=== PATIENT | female | born 1970 | race Caucasian/White ===

== ENCOUNTER 2020-01-11 16:28 | Emergency (ER) | payer OTHER, SELFPAY ==
--- NOTE | 2020-01-11 16:00 | ECG_ITS ---
Measurements Intervals [place] Rate: 86 P: 40 MO: 166 QRS: 54 QRSD: 94 T: 27 QT: 360 QTc: 432 Interpretive Statements SINUS RHYTHM NORMAL ECG Electronically Signed On 01-12-2020 7:07:54 CDT by Franck Allen D.O.
--- NOTE | 2020-01-11 16:31 | ED.ARRPALP ---
HPI - Arrhythmia/Palpitations General Chief Complaint: Arrhythmia/Palpitations Stated Complaint: heart palpitations/jaw spasm/back spasms Time Seen by Provider: 01/11/20 16:31 Source: patient and RN notes reviewed History of Present Illness HPI narrative: Patient is a 49-year-old female presents the urgent care with complaints of frontal left-sided headache, chest palpitations, chest heaviness, jaw spasm and back spasms. Patient states that started 2 days ago. States that she does have a long history of depression anxiety but states that she has not had any increase in stress or anxiety recently. Patient states that she was advised from the nurses at work to come to our facility to be evaluated. Patient states that she is currently not having palpitations at this time. States that the headache has been ongoing for approximately 2 weeks. Denies any history of hypertension or cardiac related conditions. No other acute complaints. No acute distress noted. Patient had a plan of care. Related Data Allergies Allergy/AdvReac Type Severity Reaction Status Date / Time bacitracin Allergy Unknown Unknown Verified 01/11/20 16:34 neomycin Allergy Unknown Unknown Verified 01/11/20 16:34 polymyxin B Allergy Unknown Unknown Verified 01/11/20 16:34 meperidine AdvReac Intermediate rash & Verified 01/11/20 16:34 hallucinations Review of Systems Review of Systems: Narrative: CONSTITUTIONAL: Denies fever, chills, or sweats. EYES: Denies visual changes, redness, or discharge. ENT: Denies rhinorrhea, congestion, sore throat, or otalgia. Reports of jaw pain/spasms CARDIOVASCULAR: Reports of chest discomfort with palpitations RESPIRATORY: Denies cough or dyspnea. GASTROINTESTINAL: Denies abdominal pain, nausea, vomiting, or diarrhea. GENITOURINARY: Denies dysuria or hematuria. SKIN: Denies rash or itching. MUSCULOSKELETAL: Reports of back spasms NEUROLOGIC: Reports of left frontal headache All other systems reviewed are negative, except as documented in HPI. [facility] Social History Social History Smoking status: Never smoker Alcohol intake: current Gender identity (if verbalized by the patient): Female Comments At the time of my signature, I reviewed and agree with the nursing past medical, surgical, social, and family history. There is no relevant family history pertinent to the patient complaint. Exam Narrative: Exam Narrative: GENERAL: This is a well-nourished, well-developed patient, appears slightly anxious HEAD: normocephalic, atraumatic. EYES: PERRL. Sclera clear/white. Vision is grossly intact. EARS: External ears normal NOSE: External nose normal with no obvious nasal discharge THROAT: Mucous membranes moist, posterior pharynx clear. NECK: Neck supple CARDIOVASCULAR: Regular rate and rhythm without murmurs, gallops, or rubs. RESPIRATORY: Clear to auscultation. Breath sounds equal bilaterally. No wheezes, rales, or rhonchi. SKIN: warm, intact with no suspicious lesions or rash, good texture and turgor. NEURO: awake, alert, and oriented to person, place and time. There were no obvious focal neurologic abnormalities. EXTREMITIES: No clubbing, cyanosis, or edema. Course Vital Signs Vital signs: Vital Signs Temperature 100.6 F H 01/11/20 16:36 Pulse Rate 76 01/11/20 16:36 Respiratory Rate 18 01/11/20 16:36 Blood Pressure 149/79 H 01/11/20 16:36 Pulse Oximetry 100 01/11/20 16:36 Temperature 100.6 F H 01/11/20 16:36 Pulse Rate 76 01/11/20 16:36 Respiratory Rate 18 01/11/20 16:36 Blood Pressure 149/79 H 01/11/20 16:36 Pulse Oximetry 100 01/11/20 16:36 Reviewed?patient is informed that they may have pre-hypertension or hypertension based on a blood pressure reading in the department. I recommend the patient call the primary care provider listed on their discharge instructions or a physician of their choice this week to [facility]
[2020-01-11 16:36] VITALS: BP 149/79; PULSE 76; RESP 18; TEMP 38.1; O2SAT 100
== END 2020-01-11 17:08 | disposition short-term general hospital (02) ==
PROVIDERS: Emergency Provider Nurse Practitioner Family; PCP Family Medicine
DX: R00.2 Palpitations (principal)
CPT/HCPCS: 93005; 99213; G0463

== ENCOUNTER 2020-01-11 17:25 | Emergency (ER) | payer OTHER, SELFPAY ==
[2020-01-11 17:30] VITALS: BP 143/98; PULSE 78; RESP 20; O2SAT 100
--- NOTE | 2020-01-11 17:58 | ED.ARRPALP ---
HPI - Arrhythmia/Palpitations General Chief Complaint: Arrhythmia/Palpitations Stated Complaint: MULTIPLE C/O Time Seen by Provider: 01/11/20 17:56 Source: patient Mode of arrival: ambulatory Limitations: no limitations History of Present Illness HPI narrative: A 49 y/o female presents to the ED with c/o heart palpitations. Pt states that the heart palpitations started 2 days ago and has been constant since. 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 Pt reports dizziness, left jaw spasm, and back spasm, but denies lightheadedness. She notes that the dizziness lasted 30 minutes. Pt adds that she has had a THURMAN the past 2 weeks. She denies any new stress or a change in caffeine intake that could cause her symptoms. MD complaint: palpitations Onset (ago): day(s) (2) Duration: constant Associated symptoms: other (Dizziness, left jaw spasm, back spasm) Related Data Allergies Allergy/AdvReac Type Severity Reaction Status Date / Time bacitracin Allergy Unknown Unknown Verified 01/11/20 17:37 neomycin Allergy Unknown Unknown Verified 01/11/20 17:37 polymyxin B Allergy Unknown Unknown Verified 01/11/20 17:37 meperidine AdvReac Intermediate rash & Verified 01/11/20 17:37 hallucinations Review of Systems Review of Systems: All systems reviewed & are unremarkable except as noted in HPI and below Cardiovascular: Cardiovascular: Denies lightheadedness and Reports other (Palpitations) Musculoskeletal: Musculoskeletal: Reports other (Left jaw spasm, back spasm) Neurologic: Reports dizziness PMFSH Past Medical History Medical History DVT (deep venous thrombosis) Foot fracture, left Major depressive disorder Surgical History Surgical History (Updated 01/11/20 @ 18:06 by Meenakshi Hopkins) History of tonsillectomy Family History Family History Other Diabetes mellitus Hypertension Social History Social History Smoking status: Never smoker Alcohol intake: current Gender identity (if verbalized by the patient): Female Exam Narrative: Exam Narrative: GENERAL: Well-appearing, well-nourished, and in no acute distress. HEAD: Normocephalic, atraumatic. EYES: PERRLA and EOMI. ENT: Nares clear, no rhinorrhea or epistaxis. Mucous membranes moist. NECK: Supple. CHEST: Clear to auscultation. No respiratory distress. HEART: Regular rate and rhythm. No murmur heard. Normal peripheral pulses. ABDOMEN: Soft, normal active bowel sounds. EXTREMITIES: Normal range of motion. No edema. SKIN: Warm, dry, no rash. NEURO: No focal deficits. Alert and oriented x3. PSYCH: Normal mood and affect. Course Course Emergency Course: Patient been in the ER for few hours her heart rate has been pretty stable in normal sinus rhythm. Do not see any ectopic beats or SVT or A. fib. I discussed lab and EKG findings with the patient. I recommended her to follow-up with her primary doctor also increase the dosage of Synthroid. Vital Signs Vital signs: Vital Signs Pulse Rate 78 01/11/20 17:30 Respiratory Rate 20 01/11/20 17:30 Blood Pressure 143/98 H 01/11/20 17:30 Pulse Oximetry 100 01/11/20 17:30 Pulse Rate 79 01/11/20 19:14 Respiratory Rate 17 01/11/20 19:14 Blood Pressure 136/68 01/11/20 19:14 Pulse Oximetry 100 01/11/20 19:14 MDM - Arrhythmia/Palpitations Lab Data Result diagrams: 01/11/20 18:27 01/11/20 18:27 Labs: Lab Results 01/11/20 01/11/20 Range/Units 18:27 18:27 WBC 8.2 (4.5-10.0) K/mm3 RBC 4.13 L (4.2-5.4) M/mm3 Hgb 13.2 (12.0-15.0) g/dL Hct 39.4 (37.0-47.0) % MCV 95.4 (80-100) fl MCH 32.0 (26-34) pg MCHC 33.5 (32-36) g/dl RDW 12.0 (11.5-14.5) % Plt Count 248 (150-375) k/mm3 MPV 10.2 (7
--- NOTE | 2020-01-11 18:12 | ECG_ITS ---
Measurements Intervals [place] Rate: 77 P: 35 CO: 166 QRS: 43 QRSD: 94 T: 14 QT: 379 QTc: 429 Interpretive Statements SINUS RHYTHM WITH SINUS ARRHYTHMIA BASELINE ARTIFACT- I, II, III NORMAL ECG Electronically Signed On 01-11-2020 20:22:55 CDT by Franck Allen D.O.
[2020-01-11 18:34] LABS: Basophils Percent Auto 0.4 % (0.2-1.2); Eosinophils Absolute Auto 0.4 K/mm3 (0-0.3); Eosinophils Percent Auto 4.4 % (0-4.4); Hematocrit 39.4 % (37.0-47.0); Hemoglobin 13.2 g/dL (12.0-15.0); Immature Granulocyte Absolute 0.02 K/mm3 (0.00-0.031); Immature Granulocyte Percent A 0.2 % (0-0.5); Lymphocytes Absolute Auto 1.85 K/mm3 (0.9-3.2); Lymphocytes Percent Auto 22.6 % (18.3-44.2); Mean Corpuscular HGB Conc 33.5 g/dl (32-36); Mean Corpuscular Volume 95.4 fl (80-100); Mean Platelet Volume 10.2 fl (7.4-10.4); Monocytes Absolute Auto 0.6 K/mm3 (0.1-0.6); Monocytes Percent Auto 7.4 % (2.6-8.5); Neutrophils Absolute Auto 5.3 K/mm3 (1.3-6.7); Platelet Count Result 248 k/mm3 (150-375); Red Blood Count 4.13 M/mm3 (4.2-5.4); White Blood Count 8.2 K/mm3 (4.5-10.0)
[2020-01-11 18:45] LABS: Blood Urea Nitrogen 16 mg/dL (7-17); Calcium 8.9 mg/dL (8.4-10.2); Carbon Dioxide 25 mmol/L (22-30); Chloride 103 mmol/L (98-107); Estimated CRCL calculation 103 ml/min; Estimated Glomerular Filt Rate > 60; Glucose 87 mg/dL (65-105); Sodium 134 mmol/L (137-145)
[2020-01-11 18:58] LABS: Troponin I < 0.012 ng/mL (0.000-0.034)
[2020-01-11 19:14] VITALS: BP 136/68; PULSE 79; RESP 17; O2SAT 100
[2020-01-11 19:47] VITALS: BP 131/79; PULSE 83; O2SAT 99
== END 2020-01-11 19:48 | disposition home or self-care (01) ==
PROVIDERS: Emergency Provider Family Medicine; PCP Family Medicine
DX: R00.2 Palpitations (principal); E03.9 Hypothyroidism, unspecified; Z86.718 Personal history of other venous thrombosis and embolism
CPT/HCPCS: 36415; 80048; 84443; 84484; 85025; 93005; 99284

== ENCOUNTER 2020-03-21 11:59 | Outpatient (CLI) | payer OTHER, SELFPAY ==
--- NOTE | ~2020-03-21 | MMUS_ITS ---
EXAMINATION: MM diagnostic saima BI w devora, US breast LT limited HISTORY: Left subareolar pain. TECHNIQUE: Additional 3-D tomosynthesis images of the breasts were performed and synthetic 2-D images were generated. CAD analysis was submitted and interpreted. High resolution left breast ultrasound w as performed. COMPARISON: Comparison to multiple prior studies sequentially, with oldest reviewed study dated 07/26. FINDINGS: MAMMOGRAPHIC FINDINGS: Breast composed of scattered areas of fibroglandular density. There are no suspicious masses, calcifi cations or architectural distortion to suggest malignancy. ULTRASOUND: Limited left breast ultrasound: Normal heterogeneous echotexture without focal solid or cystic mass. IMPRESSION: 1. No mammographic or sonographic evidence for malignancy. 2. Routine yearly screening mammogram and regular clinical breast examination are recommended. BI-RADS Category 1: Negative Reviewed, dictated and finalized at location A. IMPRESSION: 1. No mammographic or sonographic evidence for malignancy. 2. Routine yearly screening mammogram and regular clinical breast examination a re recommended. BI-RADS Category 1: Negative
== END 2020-03-21 12:00 | disposition home or self-care (01) ==
PROVIDERS: PCP Family Medicine; Visit Provider Nurse Practitioner
DX: N64.4 Mastodynia (principal)
CPT/HCPCS: 76642; 77062; 77066; G0279

== ENCOUNTER → 2020-06-01 14:53 | Outpatient (CLI) | payer OTHER, SELFPAY ==
--- NOTE | ~2020-06-01 | XR_ITS ---
XR knee LT 3V DATE: 06/01/2020 15:23 INDICATION: Knee pain TECHNIQUE: AP, lateral, sunrise views COMPARISON: None FINDINGS: No fracture or dislocation or joint effusion. Joint spaces are preserved. No radiopaque int ra-articular loose body or chondrocalcinosis. IMPRESSION: Negative Reviewed, dictated and finalized at location B. IMPRESSION: Negative
== END ==
PROVIDERS: PCP Nurse Practitioner Family; Visit Provider Nurse Practitioner Family
DX: M25.569 Pain in unspecified knee (principal)
CPT/HCPCS: 73562

== ENCOUNTER → 2020-07-11 08:17 | Outpatient (CLI) | payer OTHER, SELFPAY ==
--- NOTE | ~2020-07-11 | MR_ITS ---
EXAMINATION: MR knee LT wo con DATE: 07/11/2020 09:19 INDICATION: Unspecified left knee pain TECHNIQUE: Magnetic resonance imaging (MRI) of the left knee was performed without intravenous contra st. Sequences included coronal PD-weighted FSE, coronal PD-weighted FS FSE, sagittal T2-weighted FSE , sagittal PD-weighted FS FSE and axial PD weighted fat saturated FSE. COMPARISON: Radiographs dated 06/01/2020 FINDINGS: Medial compartment: Medial meniscus is normal. Mild chondral surface regularity along the anterior weightbearing medial f emoral condyle. Lateral compartment: Lateral meniscus is normal. Mild partial thickness cartilage loss and chondral surface regularity at the posterior weightbearing lateral femoral condyle. Patellofemoral compartment: Deep chondral ulceration with underlying regularity to the articular cortex along the caudal aspect o f the medial trochlea. Partial thickness chondral fissuring involving up to 50% the cartilage thickne ss at the patella including the apical ridge and both medial and lateral facets. Ligaments and tendons: Anterior and posterior cruciate ligaments are normal. The medial collateral ligament and fibular yoon ateral ligament complex are normal. Minimal tendinopathy at the distal patellar tendon. The visualize d medial and lateral hamstring tendons as well as the iliotibial band are normal. Fluid: Physiologic amount of fluid in the joint space. No loose osteochondral bodies identified. Osseous/other: No fracture. 8 x 5 x 5 mm T2 hyperintense, PD isointense lesion with cluster of grape like configurat ion at the medial epicondylar region of the distal femur with location and appearance typical for a s mall enchondroma. There is some red marrow reexpansion in the distal metadiaphyseal region of the fem ur. IMPRESSION: 1. 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 Reviewed, dictated and finalized at location A. IMPRESSION: 1. Mild patellofemoral and minimal medial and lateral compartment osteoarthriti s with high-grade chondromalacia along the medial trochlea.
== END ==
PROVIDERS: PCP Family Medicine; Visit Provider Nurse Practitioner Family
DX: M17.12 Unilateral primary osteoarthritis, left knee (principal)
CPT/HCPCS: 73721

== ENCOUNTER 2021-10-26 04:19 | Observation (INO) | payer OTHER, SELFPAY ==
[2021-10-26] VITALS (7 sets, daily range): BP systolic 122–177; BP diastolic 76–97; PULSE 62–97; RESP 18–22; TEMP 36–36.3; O2SAT 96–100; BMI 29.5
--- NOTE | ~2021-10-26 | US_ITS ---
EXAMINATION: US right upper quadrant DATE: 10/26/2021 07:24 INDICATION: Epigastric abdominal pain. TECHNIQUE: Multiple grayscale and Doppler ultrasound images of the abdomen were obtained. COMPARISON: CT abdomen and pelvis 10/26/2021 FINDINGS: The visualized portions of the head of the pancreas are normal. The liver is normal without focal lesion. There is normal flow in main portal vein. The gallbladder is distended and contains sl udge. No gallstones or gallbladder wall thickening. There was no sonographic Gutierrez sign. The common duct is normal and measures 4 mm. IMPRESSION: 1. Distended gallbladder with sludge, but no gallstones or gallbladder wall thickening or sonographic Gutierrez sign to suggest acute cholecystitis. Reviewed, dictated and finalized at location A. TECHNICIAN IMPRESSION: 1. Distended gallbladder with sludge, but no gallstones or gallbladder wall thi ckening or sonographic Gutierrez sign to suggest acute cholecystitis.
--- NOTE | ~2021-10-26 | CT_ITS ---
EXAMINATION: CT abdomen pelvis w con DATE: 10/26/2021 06:03 INDICATION: Epigastric abdominal pain. TECHNIQUE: Computed tomography (CT) of the abdomen and pelvis was performed with 100 mL Omnipaque 350 intravenous contrast. Automated exposure control and iterative reconstruction technique were employe d. The dose-length product was 453.76 mGy-cm. COMPARISON: None. FINDINGS: The visualized portions of the lung bases demonstrate minimal atelectasis. No pleural effus ion. The heart size is normal. No pericardial effusion. There is a small sliding hiatal hernia. The l iver and spleen are normal. The gallbladder is distended. Gallbladder wall thickening is noted. There is fat stranding at the hilum of the liver. The pancreas, adrenal glands, and kidneys are normal. Th ere is diverticulosis of the colon without evidence of diverticulitis. There are no dilated loops of bowel. The appendix is normal. There is a 2.1 cm dominant follicle in right ovary. There is a stent i n left common iliac vein. There are no pathologically enlarged lymph nodes. There is no free intraper itoneal fluid. There is an umbilical hernia containing fat. There is moderate lower lumbar spondylosi s. IMPRESSION: 1. Distended gallbladder with gallbladder wall thickening and fat stranding at the hilum of the liver suspicious for acute cholecystitis. 2. Small sliding hiatal hernia. 3. Umbilical hernia containing fat. Reviewed, dictated and finalized at location A. TIONS MANAGER
--- NOTE | 2021-10-26 04:37 | ECG_ITS ---
Measurements Intervals [place] Rate: 57 P: 42 SD: 179 QRS: 65 QRSD: 97 T: 62 QT: 416 QTc: 405 Interpretive Statements SINUS BRADYCARDIA WITH SINUS ARRHYTHMIA BASELINE ARTIFACT- I, II, AVR BORDERLINE ECG Electronically Signed On 10-29-2021 9:39:34 INFORMATION SECURITY OFFICER by Franck Allen D.O.
[2021-10-26 05:13] LABS: Basophils Percent Auto 0.5 % (0.2-1.2); Eosinophils Absolute Auto 0.1 K/mm3 (0-0.3); Eosinophils Percent Auto 1.2 % (0-4.4); Hematocrit 40.9 % (37.0-47.0); Hemoglobin 14.5 g/dL (12.0-15.0); Immature Granulocyte Absolute 0.03 K/mm3 (0.00-0.031); Immature Granulocyte Percent A 0.4 % (0-0.5); Lymphocytes Absolute Auto 0.82 K/mm3 (0.9-3.2); Lymphocytes Percent Auto 9.9 % (18.3-44.2); Mean Corpuscular HGB Conc 35.5 g/dl (32-36); Mean Corpuscular Hemoglobin 33.1 pg (26-34); Mean Corpuscular Volume 93.4 fl (80-100); Mean Platelet Volume 9.7 fl (7.4-10.4); Monocytes Absolute Auto 0.5 K/mm3 (0.1-0.6); Monocytes Percent Auto 5.7 % (2.6-8.5); Neutrophils Absolute Auto 6.8 K/mm3 (1.3-6.7); Neutrophils Percent Auto 82.3 % (45.5-73.1); Platelet Count Result 248 k/mm3 (150-375); Red Blood Count 4.38 M/mm3 (4.2-5.4); Red Cell Distribution Width 12.3 % (11.5-14.5); White Blood Count 8.3 K/mm3 (4.5-10.0)
[2021-10-26] MEDS: SODIUM CHLORIDE 0.9% IV 1,000 ML 999 ML IV CONT (05:19)
[2021-10-26] MEDS: ONDANSETRON INJ 4 MG/2 ML VIAL IV PUSH (05:19)
[2021-10-26] MEDS: MORPHINE SULFATE (*CRX) 4 MG/ML INJ IV PUSH ×2 (05:19→08:15)
[2021-10-26 05:30] LABS: Alanine Aminotransferase 403 U/L (4-35); Albumin Level 4.2 g/dL (3.5-5.1); Alkaline Phosphatase 214 U/L (38-126); Anion Gap 7 mmol/L (8-16); Bilirubin,Total 1.8 mg/dL (0.2-1.3); Blood Urea Nitrogen 12 mg/dL (7-17); Calcium 9.3 mg/dL (8.4-10.2); Carbon Dioxide 27 mmol/L (22-30); Chloride 99 mmol/L (98-107); Estimated CRCL calculation 82 ml/min; Estimated Glomerular Filt Rate > 60; Glucose 152 mg/dL (65-110); Lipase 185 U/L (23-300); Potassium 3.9 mmol/L (3.4-5.0); Sodium 133 mmol/L (137-145)
[2021-10-26 05:33] LABS: Aspartate Amino Transferase 756 U/L (14-36)
[2021-10-26 05:56] LABS: Add Urine Microscopic? YES; Amorphous Sediment Urine Few; Appearance Urine Cloudy (Clear); Bacteria Urine Trace /hpf; Bilirubin Urine Negative (Negative); Blood Urine Negative (Negative); Color Urine Amber (Yellow); Glucose Urine UA 1+ mg/dL (Negative); Ketones Urine 1+ mg/dL (Negative); Leukocyte Esterase Ur Negative LEU/UL (Negative); Mucus Urine Rare /lpf; Nitrate Urine Negative (Negative); Protein Urine Negative (Negative); Specific Grav Ur 1.017 (1.001-1.035); Squamous Epithelial Cell Urine Occasional /hpf (Few)
--- NOTE | 2021-10-26 06:49 | ED.ABDPAIN ---
HPI - Abdominal Pain General Chief Complaint: Abdominal Pain <Griffin Caro MD - Last Filed: 10/26/21 06:58> Stated Complaint: abdominal pain, radiates to flanks <Griffin Caro MD - Last Filed: 10/26/21 06:58> Time Seen by Provider: 10/26/21 04:52 <Griffin Caro MD - Last Filed: 10/26/21 06:58> History of Present Illness HPI narrative: Patient is a 51-year-old female who presents ER with epigastric pain. Began after lunch. Has been cramping and worsening since then. No improvement with Tums. Feels burning going up into her chest. Pain also goes into her back. Reports she takes Wegovy and her last injection was 1 day earlier. Reports this occasionally gets her abdominal discomfort when she eats. This is more intense. Denies fevers or chills or sweats. Has been having persistent vomiting. No alleviating factors. <Griffin Caro MD - Last Filed: 10/26/21 06:58> Related Data Allergies/Adverse Reactions: Allergies Allergy/AdvReac Type Severity Reaction Status Date / Time bacitracin Allergy Unknown Unknown Verified 10/26/21 04:27 neomycin Allergy Unknown Unknown Verified 10/26/21 04:27 polymyxin B Allergy Unknown Unknown Verified 10/26/21 04:27 meperidine AdvReac Intermediate rash & Verified 10/26/21 04:27 hallucinations <Griffin Caro MD - Last Filed: 10/26/21 06:58> Review of Systems Review of Systems: All systems reviewed & are unremarkable except as noted in HPI and below <Griffin Caro MD - Last Filed: 10/26/21 06:58> Constitutional: Constitutional: Denies chills, Denies fever(s) and Denies weakness <Griffin Caro MD - Last Filed: 10/26/21 06:58> ENT: Denies nasal congestion and Denies sore throat <Griffin Caro MD - Last Filed: 10/26/21 06:58> Respiratory: Respiratory: Denies cough, Denies dyspnea and Denies wheezing <Griffin Caro MD - Last Filed: 10/26/21 06:58> Gastrointestinal: Gastrointestinal: Reports abdominal pain, Denies diarrhea, Reports nausea and Reports vomiting <Griffin Caro MD - Last Filed: 10/26/21 06:58> Genitourinary: Genitourinary: Denies nocturia, Denies dysuria and Denies flank pain <Griffin Caro MD - Last Filed: 10/26/21 06:58> Musculoskeletal: Musculoskeletal: Denies back pain and Denies muscle cramps <Griffin Caro MD - Last Filed: 10/26/21 06:58> Neurologic: Denies headache(s), Denies focal weakness and Denies numbness <Griffin Caro MD - Last Filed: 10/26/21 06:58> PMF Past Medical History Medical History: Medical History Adult BMI 32.0-32.9 kg/sq m BMI 29.0-29.9,adult BMI 31.0-31.9,adult BMI 32.0-32.9,adult DVT (deep venous thrombosis) Foot fracture, left Major depressive disorder Weight loss counseling, encounter for <Griffin Caro MD - Last Filed: 10/26/21 06:58> Surgical History Surgical History: Surgical History H/O prior ablation treatment History of tonsillectomy <Griffin Caro MD - Last Filed: 10/26/21 06:58> Family History Family History: Family History Father Diabetes mellitus Mother No problems noted. Sibling Diabetes mellitus Other Cerebrovascular accident Depression Heart disease Hypertension Thyroid disease <Griffin Caro MD - Last Filed: 10/26/21 06:58> Social History Social History: Social History Smoking status: Never smoker Second hand tobacco smoke exposure: No Alcohol intake: current Substance use: never Substance use type: does not use Additional occupation/education comments: pharmacist Gender identity (if verbalized by the patient): Female <Griffin Caro MD - Last Filed: 10/26/21 06:58> Exam Narrative: GENERAL: Uncomfort
--- NOTE | 2021-10-26 09:01 | PM.CNGS ---
Assessment and Plan Assessment and plan (1) Sludge in gallbladder: Onset Date: ~10/26/21 Code(s): K82.8 - Other specified diseases of gallbladder Status: Acute Assessment and Plan: This shows best on ultrasound. There is a good amount in the dependent portion of the gallbladder. Review of CT and ultrasound with the radiologist reveals mild gallbladder wall thickening and slight fat stranding around the neck of the gallbladder. This may improve with antibiotics which she is on. Our main concern was whether not the sludge is also impending flow through the common bile duct. For now will plan to repeat BMP, lipase, and hepatic panel in a.m. and make further decisions after that. Will allow patient to have clear liquids until midnight then NPO after that. (2) Acute cholecystitis: Onset Date: ~09/2021 Code(s): K81.0 - Acute cholecystitis Status: Acute Assessment and Plan: This is questionable as the patient's white count is normal and she is not running a fever. The only reason this was proposed was because of a question of some gallbladder wall thickening and some pericholecystic cystic fat stranding near the neck of the gallbladder. Will continue to follow with labs. 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 She developed of very severe left leg swelling and was told that she had a classic case of this problem. Therefore, she was transferred to [place] in [facility] and had a vascular surgeon or an interventional radiologist go through the vein in the Lt. popliteal region and place this stent in her left iliac vein after removing clot. She has had no significant problems with it and has had not had any further DVTs that she knows of. (5) Hematuria: Code(s): R31.9 - Hematuria, unspecified Status: Acute Assessment and Plan: unknown eitiology (6) Hyponatremia: Onset Date: ~10/26/21 Code(s): E87.1 - Hypo-osmolality and hyponatremia Status: Acute Assessment and Plan: Noted on her admission labs. Hospitalist is addressing this. NPO status probably will help but I will let her have some clear liquids today until midnight. (7) Elevated LFTs: Onset Date: Unknown Code(s): R79.89 - Other specified abnormal findings of blood chemistry Status: Acute Assessment and Plan: Etiology this could be sludge in the common bile duct. However, this does not seem to be the case on CT as the bile ducts do not appear to be significantly dilated on CT. Another possibility would be side effects of her semaglutide, however review of the typical side effects of this arr more pancreatitis & not necessarily liver function abnormalities. Would plan on repeating these labs in the morning and doing a breakdown of the bilirubin by doing a BMP plus a Hepatic panel rather than a CMP. We will also repeat the lipase to be sure that she is not having some element of pancreatitis that was just too early for the lipase to be up, because she is complaining about some left-sided flank pain now along with the bilateral upper abd. pain. (8) H/O prior ablation treatment: Code(s): Z98.890 - Other specified postprocedural states Status: Acute (9) BMI 29.0-29.9,adult: Code(s): Z68.29 - Body mass index [BMI] 29.0-29.9, adult Status: Acute History of Present Illness Consult details Consult date: 10/26/21 Reason for consult: abdominal pain Requesting physician: Albaro Rees MD Narrative: The patient is a 51-year-old white female who presents ER with epigastric pain. she has been working with her PCP regarding her diabetes and mikhail
--- NOTE | 2021-10-26 09:20 | ADMGEN ---
This patient, Sol Reynolds, was admitted to 2 Medical Room 261-01. Patient/family oriented to hospital policies and general routines including ID bracelet, bed and alarms, visiting hours, pain management, procedures, bathroom and other care routines, personal items, smoking policy, room service/diet, and visiting hours. Information on how to activate the Rapid Response Team has been discussed. Patient/Family are encouraged to report perceived risks to care and to ask questions if they do not understand what they are told or what they should do.
[2021-10-26] MEDS: SODIUM CHLORIDE 0.9% IV 1,000 ML 125 ML IV CONT ×2 (10:07→20:51)
--- NOTE | 2021-10-26 10:37 | PM.IMHP ---
H&P: HPI History of Present Illness Date/Time: 10/26/21 10:37 Chief Complaint: abdominal pain Narrative: Patient is a 51-year-old female with a past medical history of depression who presented emergency room for epigastric pain. Patient states that she gave herself her injection of Wegovy and ate a breakfast sandwich on and started having some abdominal pain. At , she did not think this was too abnormal because when she takes it she usually has epigastric fullness with a slight stomach ache but yesterday's was different. She said the pain was a 9/10 to the epigastric and right upper quadrant area. She tried to take Tums which did not help. She started vomiting and continued to have pain so she decided to come in. As stated, when she takes this medicine she usually has epigastric fullness but she has never had pain like this. She continues to have pain her which has lessened and now is a 4/10. She does not have much of an appetite but has not vomited while being ont he floor. She denies chest pain or shortness of breath, diarrhea, constipation or dysuria. She says she does not take excessive amounts of Tylenol, aspirin or alcohol. She drinks about 2-3 glass a wine maybe 3 days a week socially when she goes out to eat. She has no new medications. She has taken Effexor for many many years and the Wellbutrin was started a year ago. She is irregular with her menstrual cycle as she had an ablation 10 years ago. She has a history of May Thurner syndrome with a DVT in her leg which she got a stent in her iliac vein for. She has no known history of hepatic disease. [facility] Past Medical History Medical History (Updated 10/26/21 @ 12:01 by Jovanna Ortiz PA-C) Adult BMI 32.0-32.9 kg/sq m BMI 29.0-29.9,adult BMI 31.0-31.9,adult BMI 32.0-32.9,adult DVT (deep venous thrombosis) Foot fracture, left Hypothyroidism (acquired) Major depressive disorder Weight loss counseling, encounter for Surgical History Surgical History H/O prior ablation treatment History of tonsillectomy Family History Family History Father Diabetes mellitus Mother No problems noted. Sibling Diabetes mellitus Other Cerebrovascular accident Depression Heart disease Hypertension Thyroid disease Social History Social History (Updated 10/26/21 @ 12:02 by Jovanna Ortiz PA-C) Social History: Patient does not smoke cigarettes currently but did smoke for 5 years in college. She does not smoke marijuana or do drugs. She drinks 2-3 glasses of wine about 3 days a week. 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 power of ip technology transactions attorney is her [place] Smoking status: Never smoker Second hand tobacco smoke exposure: No Alcohol intake: current Drinks per week: 12 Substance use: never Substance use type: does not use Additional occupation/education comments: pharmacist Gender identity (if verbalized by the patient): Female Spiritual care concerns: No Meds Home Medications and Allergies Home Medications Medication Instructions Recorded Confirmed Type bupropion HCl 150 mg 24 hr tablet, 150 mg PO QAM #30 tablet 06/13/21 10/26/21 Rx extended release levothyroxine 50 mcg tablet 50 mcg PO DAILY #90 tablet 08/08/21 10/26/21 Rx clonazepam 0.5 mg tablet 0.5 mg PO TID PRN #28 tablet 09/05/21 10/26/21 Rx semaglutide (weight loss) 2.4 2.4 mg SUBCUT WEEKLY #3 ml 10/22/21 10/26/21 Rx mg/0.75 mL subcutaneous pen injector venlafaxine [Effexor XR] 150 mg PO DAILY 10/26/21 10/26/21 History zolpidem [Ambien] 10 mg PO ONCE PRN 10/26/21 10/26/21 History Allergies Allergy/AdvReac Type Severity Reaction Status Date / Time bacitracin Allergy Unknown Unknown Verified 10/26/21 10:04 neomycin Allergy Unknown Unknown Verified 10/26/21 10:04 polymyxin B Allergy Unknown Unknown Ve
[2021-10-26 11:31] LABS: Prothrombin Time 13.2 Seconds (11.1-14.7)
[2021-10-26 11:32] LABS: Partial Thromboplastin Time 25.3 SECONDS (22.3-36.8)
[2021-10-26] MEDS: KETOROLAC 30 MG/ML VIAL (*BKC) IV PUSH ×2 (14:22→23:24)
[2021-10-26] MEDS: ACETAMINOPHEN 325 MG TABLET 650 MG PO (20:49)
[2021-10-26] MEDS: ZOLPIDEM TARTRATE (*CRX) 5 MG TABLET 10 MG PO (20:50)
[2021-10-27 04:46] VITALS: BP 123/64; PULSE 71; RESP 18; TEMP 36.2; O2SAT 100
[2021-10-27] MEDS: ACETAMINOPHEN 325 MG TABLET 650 MG PO (04:57)
[2021-10-27] MEDS: SODIUM CHLORIDE 0.9% IV 1,000 ML 125 ML IV CONT ×2 (04:59→17:33)
[2021-10-27] MEDS: LEVOTHYROXINE SODIUM 50 MCG TABLET PO (06:02)
[2021-10-27 06:13] LABS: Basophils Absolute Auto 0.1 K/mm3 (0.0-0.1); Eosinophils Absolute Auto 0.2 K/mm3 (0-0.3); Hematocrit 36.1 % (37.0-47.0); Hemoglobin 12.2 g/dL (12.0-15.0); Immature Granulocyte Absolute 0.03 K/mm3 (0.00-0.031); Immature Granulocyte Percent A 0.5 % (0-0.5); Lymphocytes Absolute Auto 1.59 K/mm3 (0.9-3.2); Lymphocytes Percent Auto 26.8 % (18.3-44.2); Mean Corpuscular HGB Conc 33.8 g/dl (32-36); Mean Corpuscular Hemoglobin 33.1 pg (26-34); Mean Corpuscular Volume 97.8 fl (80-100); Mean Platelet Volume 9.8 fl (7.4-10.4); Monocytes Absolute Auto 0.4 K/mm3 (0.1-0.6); Monocytes Percent Auto 7.4 % (2.6-8.5); Neutrophils Absolute Auto 3.6 K/mm3 (1.3-6.7); Neutrophils Percent Auto 60.3 % (45.5-73.1); Platelet Count Result 223 k/mm3 (150-375); Red Blood Count 3.69 M/mm3 (4.2-5.4); Red Cell Distribution Width 12.8 % (11.5-14.5); White Blood Count 5.9 K/mm3 (4.5-10.0)
[2021-10-27 06:56] LABS: Alanine Aminotransferase 234 U/L (4-35); Albumin Level 3.2 g/dL (3.5-5.1); Alkaline Phosphatase 147 U/L (38-126); Anion Gap 5 mmol/L (8-16); Aspartate Amino Transferase 156 U/L (14-36); Bilirubin,Total 0.7 mg/dL (0.2-1.3); Blood Urea Nitrogen 6 mg/dL (7-17); Calcium 7.7 mg/dL (8.4-10.2); Carbon Dioxide 28 mmol/L (22-30); Chloride 102 mmol/L (98-107); Estimated CRCL calculation 73 ml/min; Estimated Glomerular Filt Rate > 60; Glucose 84 mg/dL (65-110); Lipase 235 U/L (23-300); Potassium 3.6 mmol/L (3.4-5.0); Sodium 135 mmol/L (137-145)
[2021-10-27 07:18] LABS: Hepatitis B Surface Antigen Negative (Negative)
[2021-10-27 07:24] LABS: HAV RESULT Negative (Negative); Hepatitis B Core IgM Result Negative (Negative)
[2021-10-27 07:35] LABS: Hepatitis C Virus Antibody Negative (Negative)
[2021-10-27] MEDS: PANTOPRAZOLE SODIUM IV 40 MG VIAL IV PUSH (09:52)
--- NOTE | 2021-10-27 10:04 | WPDGICN ---
Assessment and Plan Assessment and plan (1) Elevated LFTs: Onset Date: Unknown Code(s): R79.89 - Other specified abnormal findings of blood chemistry Status: Acute Assessment and Plan: Patient presented with elevated transaminases. Associated with epigastric and substernal pain now improving. Sludge was identified in the gallbladder on ultrasound. Potentially this could have contributed to her discomfort and now improvement. Surgery is following her and feels that urgent surgery is not necessary. As LFTs are improving would recommend continued follow-up until these are resolved this can be accomplished as an outpatient. We will try low-fat diet of surgery agrees. This may indeed be the most likely etiology for discomfort prove this an MRCP or HIDA scan may be required. I will leave this to the discretion of surgery. Current hepatitis ABC serologies are negative. Medication effect is possible but also feels unlikely. (2) Epigastric abdominal pain: Code(s): R10.13 - Epigastric pain Status: Acute Assessment and Plan: Epigastric abdominal pain appears to be on the basis of elevated LFTs. Present time sludge appears to be the culprit. Historically this sounds more like dyspepsia. Would recommend a brief trial of Prilosec 20 mg p.o. daily. If pain persists or recurs elective EGD as an outpatient can be considered. GI Consult Note Consult date/time: 10/27/21 10:04 HPI: Sol Reynolds is a 51 year old female I am asked to see for epigastric pain and elevated LFTs. Patient reports in her usual state of health until yesterday afternoon she had sudden epigastric pain substernal burning that did not respond antacids. She presented the emergency room was noted to have markedly elevated serum transaminases. Patient denies any prior history of liver disease. She has no known exposure to hepatitis. She has never previously been told she had gallbladder disease. Her family history is noncontributory. Patient feels much improved this morning. Although she is hungry. She denies any abdominal or chest pain at present Review of Systems Review of Systems: All systems reviewed & are unremarkable except as noted in HPI and below PMFSH Past Medical History Medical History (Updated 10/27/21 @ 10:08 by Reid Schwartz MD) Adult BMI 32.0-32.9 kg/sq m BMI 29.0-29.9,adult BMI 31.0-31.9,adult BMI 32.0-32.9,adult DVT (deep venous thrombosis) Foot fracture, left Hypothyroidism (acquired) Major depressive disorder Weight loss counseling, encounter for Surgical History Surgical History H/O prior ablation treatment History of tonsillectomy Family History Family History Father Diabetes mellitus Mother No problems noted. Sibling Diabetes mellitus Other Cerebrovascular accident Depression Heart disease Hypertension Thyroid disease Social History Social History Social History: Patient does not smoke cigarettes currently but did smoke for 5 years in college. She does not smoke marijuana or do drugs. She drinks 2-3 glasses of wine about 3 days a week. 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 power of state attorney is her , Duarte Smoking status: Never smoker Second hand tobacco smoke exposure: No Alcohol intake: current Drinks per week: 12 Substance use: never Substance use type: does not use Additional occupation/education comments: pharmacist Gender identity (if verbalized by the patient): Female Spiritual care concerns: No Meds Home Medications and Allergies Home Medications Medication Instructions Recorded Confirmed Type bupropion HCl 150 mg 24 hr tablet, 150 mg PO QAM #30 tablet 06/13/21 10/26/21 Rx extended release levothyroxine 50 mcg ta
[2021-10-27] MEDS: IBUPROFEN 600 MG TABLET PO ×2 (12:19→17:50)
[2021-10-27] MEDS: VENLAFAXINE HCL XR 75 MG CAP.ER.24H 150 MG PO (12:57)
--- NOTE | 2021-10-27 13:34 | PM.IMPN ---
Progress Note: A&P Assessment and Plan (1) Elevated LFTs: Onset Date: Unknown Code(s): R79.89 - Other specified abnormal findings of blood chemistry Status: Acute Assessment and Plan: Improving AST/ALT/ alk phos 756-->156/403-->234/214-->147 CT of the abdomen pelvis shows possible acute cholecystitis and right upper quadrant ultrasound shows gallbladder sludge but no gallstones or gallbladder wall thickening GI consulted, recommendation appreciated No reports of excessive Tylenol alcohol, or aspirin use. 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 I called and spoke to radiology who reports no arterial/venous occlusions to the major arteries and veins Could consider CTA to assess for small vessel pathology but seems less likely Monitor liver enzymes May need HIDA or MRCP (2) Hyponatremia: Onset Date: ~10/26/21 Code(s): E87.1 - Hypo-osmolality and hyponatremia Status: Acute Assessment and Plan: Improving Na+ 133-->135 today Hx low sodium in the past down to 134 Likely due to acute illness on top of chronic hyponatremia Monitor daily labs (3) Hematuria: Code(s): R31.9 - Hematuria, unspecified Status: Acute Assessment and Plan: Noted on UA without signs of infection Recommend follow-up with primary care physician for repeat UA when healthy If she continues to have hematuria, she will need to follow up with a urologist (4) Hypothyroidism (acquired): Code(s): E03.9 - Hypothyroidism, unspecified Status: Acute Assessment and Plan: TSH elevated at 6.340 Will check free T4 Continue home dose for now, consider increasing (5) Anxiety: Code(s): F41.9 - Anxiety disorder, unspecified Status: Acute Assessment and Plan: Effexor and Wellbutrin resumed, LFT improving (6) May-Thurner syndrome: Onset Date: Unknown Code(s): I87.1 - Compression of vein Status: Acute Assessment and Plan: as above (7) Person under investigation for COVID-19: Code(s): Z20.822 - Contact with and (suspected) exposure to COVID-19 Status: Acute Assessment and Plan: Pt with elevated LFTs Generalized weakness, sore throat, THURMAN Check pcr Additional Plan Code status: FULL DVT Ppx: Lovenox Subjective Date/time seen: 10/27/21 13:34 Interval history: Pt seen this a.m.;labs, vs, diagnostic tests, consult notes reviewed; pt complains of head and sore throat this a.m. and generalized weakness; she reports having COVID 19 in July and is fully vaccinated with booster; denies any N/V/D or abdominal pain or recent sick contacts Review of Systems Review of Systems: All systems reviewed & are unremarkable except as noted in HPI and below Exam Const: General: no acute distress, alert and awake Orientation/consciousness: patient oriented x3 HENMT: Head: normocephalic and atraumatic Ears: hearing grossly normal bilaterally Face and sinus: face symmetric Mouth: Yes Normal oral and palatal mucosa present Eyes: EOM: EOMs intact bilaterally Neck: Neck: full ROM, trachea midline and no JVD Resp: Effort & Inspection: normal respiratory effort Auscultation: clear to auscultation bilaterally Cardio: Jugular venous distension: no JVD Rate: regular rate Rhythm: regular rhythm Heart sounds: S1 normal heart sound present and S2 normal heart sound present GI: Inspection: normal to inspection GI Palp: Yes Soft to palpation Percussion: Yes normal to percussion Auscultation: normal bowel sounds : General: Yes no CVA tenderness Back/Spine/Pelvis: Back: no CVA tenderness Skin: General skin exam: normal color Rashes: no rashes Neuro: General: patient oriented x3, moves all extremities and no focal motor deficits Cranial nerves: Yes Equal, round and reactive pupils present Speech: normal speech Extrem: General: no clubbing, cyanosis or edema
[2021-10-27 14:00] VITALS: BP 129/72; PULSE 74; RESP 20; TEMP 36.7; O2SAT 98
[2021-10-27 14:27] LABS: EDCOVIDSCREEN Negative (Negative)
--- NOTE | 2021-10-27 14:56 | PM.PNGS ---
Progress Note: A&P Assessment and Plan (1) Sludge in gallbladder: Onset Date: ~10/26/21 Code(s): K82.8 - Other specified diseases of gallbladder Status: Acute Assessment and Plan: This was shown on ultrasound fairly prominently. Note her total bilirubin came down to normal. The other liver function tests have improved significantly in the last 24 hours. At this time I had a significant discussion with her about continued care. Since it appears that her liver functions may have been affected by the medications she is taking for weight loss or by the fellow up min of sludge in the gallbladder which was partially blocking or causing some back up in the common duct system but now has probably passed into the bowel we are planning to consider use of Actigall. Patient will be discharged today following strictly the low-fat diet I have provided for her. Will repeat a CMP to check liver function tests Friday or Friday of this coming week as an outpatient. If her liver function tests have normalized she would be a candidate to use Actigall to try to dissolve the sludge and avoid surgery. 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 For now she will avoid taking this for 1 month so as not to confuse whether it is causing a problem or whether this sludge in the gallbladder is causing the problem. ( It is also possible that this has contributed to the development of the sludge during the last year as she lost weight). If possible we will then start her on Actigall late next week. I would then repeat an ultrasound of the gallbladder and for 6 months to see if the sludge has disappeared. Will need to probably 1 month after the start of Actigall recheck liver function test to be sure that he Actigall is not affecting her intrinsic liver function by way of showing a elevation of her AST ALT. She is amenable to this plan and as long she does well with a full liquid diet for lunch we will plan to consider discharge this afternoon. (2) Hyponatremia: Onset Date: ~10/26/21 Code(s): E87.1 - Hypo-osmolality and hyponatremia Status: Acute Assessment and Plan: Improved this day with IV fluids (3) Elevated LFTs: Onset Date: Unknown Code(s): R79.89 - Other specified abnormal findings of blood chemistry Status: Acute Assessment and Plan: Significantly improved today ( 10/27/2021) do not know whether this is related to the use of her weight loss drug (Semaglutide) whether she may have been passing some of the sludge which caused a slow down in the flow through the common duct and a backup bleeding to the elevated bilirubin and other LFTs. No matter which since she has avoided taking the medication and cut back on fatty food ingestion these functions seemed to be better. (4) Acute cholecystitis: Onset Date: ~09/2021 Code(s): K81.0 - Acute cholecystitis Status: Acute Assessment and Plan: I doubt this as her white count has stayed normal and her pain has now resolved. Subjective Subjective Date/Time Seen: 10/27/21 14:56 Patient reports: no new complaints and feels better Interval history: Patient states she feels significantly better. She does complain of a headache, slight nausea, and a sore throat. Her abdominal pain and nausea are since late gone. She states that the upper abdominal pain that she came in with at 8/10 is now about a 1/10. Review of Systems Review of Systems: All systems reviewed & are unremarkable except as noted in HPI and below Constitutional: Constitutional: Reports as per HPI, Denies chills and Denies fever(s) Cardiovascular: Cardiovascular: Denies chest pain and Denies dyspnea Respiratory: Respiratory: Reports no additional respiratory complaints and Denies dyspnea Gastr
[2021-10-27 20:44] VITALS: BP 134/72; PULSE 72; RESP 20; TEMP 35.7; O2SAT 100
[2021-10-27] MEDS: ZOLPIDEM TARTRATE (*CRX) 5 MG TABLET 10 MG PO (21:16)
[2021-10-27] MEDS: KETOROLAC 30 MG/ML VIAL (*BKC) IV PUSH (21:18)
[2021-10-28] MEDS: SODIUM CHLORIDE 0.9% IV 1,000 ML 125 ML IV CONT ×2 (00:29→10:10)
[2021-10-28 04:48] VITALS: BP 120/56; PULSE 74; RESP 20; TEMP 36.2; O2SAT 99
[2021-10-28 05:40] LABS: Potassium 3.4 mmol/L (3.4-5.0)
[2021-10-28 05:42] LABS: Alanine Aminotransferase 143 U/L (4-35); Alkaline Phosphatase 112 U/L (38-126); Anion Gap 4 mmol/L (8-16); Aspartate Amino Transferase 67 U/L (14-36); Bilirubin,Total 0.4 mg/dL (0.2-1.3); Blood Urea Nitrogen 4 mg/dL (7-17); Calcium 7.5 mg/dL (8.4-10.2); Carbon Dioxide 25 mmol/L (22-30); Chloride 106 mmol/L (98-107); Estimated CRCL calculation 83 ml/min; Estimated Glomerular Filt Rate > 60; Glucose 85 mg/dL (65-110); Sodium 135 mmol/L (137-145)
[2021-10-28] MEDS: LEVOTHYROXINE SODIUM 50 MCG TABLET PO (05:46)
[2021-10-28 06:03] LABS: Free T4 Free Thyroxine 1.01 ng/mL (0.78-2.19)
--- NOTE | 2021-10-28 09:24 | WPDGIPROGNO ---
Progress Note: A&P Assessment and Plan (1) Sludge in gallbladder: Onset Date: ~10/26/21 Code(s): K82.8 - Other specified diseases of gallbladder Status: Acute Assessment and Plan: Sludge in gall bladder. No evidence of cholecystitis. No evidence of gallstones. Suspect this sludge may have passed through the common duct causing her symptoms as well as elevation of the LFTs. This is now improving. I would agree with surgery on holding off on surgical therapy. Low-fat diet may be helpful. Actigall could be a consideration. The etiology of this could be related to rapid weight loss . (2) Elevated LFTs: Onset Date: Unknown Code(s): R79.89 - Other specified abnormal findings of blood chemistry Status: Acute Assessment and Plan: LFTs with continued improvement very suggestive of passage of sludge. Transient biliary obstruction. Recommend conservative therapy at this time [place] fat diet. Discharged today if others agree. (3) May-Thurner syndrome: Onset Date: Unknown Code(s): I87.1 - Compression of vein Status: Acute Subjective Date/time seen: 10/28/21 09:24 Patient alert and comfortable this morning. Tolerating diet. Denies any pain. Ambulating in the halls. Review of Systems Review of Systems: All systems reviewed & are unremarkable except as noted in HPI and below Exam Narrative: Patient is alert. Vital signs stable. HEENT exam unremarkable. Patient anicteric. Lungs are clear. Heart without murmur. Abdomen bowel sounds present soft nontender with no organomegaly. Objective Data Vital Signs Vital Signs: Vital Signs - 24 hr 10/27/21 14:00 10/27/21 20:44 10/28/21 04:48 Temperature 98.0 F 96.2 F L 97.2 F L Pulse Rate 74 72 74 Respiratory Rate 20 20 20 Blood Pressure 129/72 134/72 120/56 L Pulse Oximetry 98 100 99 Intake/Output Intake/Output: Intake & Output 10/25/21 10/26/21 10/27/21 10/28/21 23:59 23:59 23:59 23:59 Intake Total 2850 3090 1390 Balance 2850 3090 1390 Meds/Results Medications: Active Medications Generic Name Dose Route Start Last Admin Trade Name Freq PRN Reason Stop Dose Admin Acetaminophen 650 mg 10/26/21 20:21 10/27/21 04:57 Acetaminophen 325 Mg Tablet PO 650 mg Q6H PRN Administration Mild Pain (1-3) or Fever Bupropion HCl 150 mg 10/28/21 09:00 Bupropion Hcl Xl (24 Hr) 150 Mg Tabcr PO QAM EDGARD Piperacillin/Tazobactam/Dextrose 3.375 gm in 50 mls @ 100 mls/hr 10/26/21 12:30 10/28/21 05:47 Zosyn 3.375 Gm/D5w 50ml Pm IVPB Infused Q6HR EDGARD Infusion Sodium Chloride 1,000 mls @ 125 mls/hr 10/26/21 07:55 10/28/21 00:29 Normal Saline Iv IV CONT 125 mls/hr .Q8H EDGARD Administration Ketorolac Tromethamine 30 mg 10/27/21 20:33 10/27/21 21:18 Ketorolac 30 Mg/Ml Vial (*Bkc) IV PUSH 10/29/21 23:59 30 mg Q6H PRN Administration Pain Rated 4-6 Levothyroxine Sodium 50 mcg 10/27/21 06:30 10/28/21 05:46 Levothyroxine Sodium 50 Mcg Tablet PO 50 mcg DAILY@0630 EDGARD Administration Morphine Sulfate 2 mg 10/26/21 14:01 Morphine Sulfate (*Crx) 2 Mg/Ml Inj IV PUSH Q4H PRN Pain Rated 7-10 or npo Ondansetron HCl 4 mg 10/26/21 07:53 Ondansetron Inj 4 Mg/2 Ml Vial IV PUSH Q4H PRN Nausea Pantoprazole Sodium 40 mg 10/27/21 09:00 10/27/21 09:52 Pantoprazole Sodium Iv 40 Mg Vial IV PUSH 40 mg QAM EDGARD Administration Venlafaxine HCl 150 mg 10/27/21 11:40 10/27/21 12:57 Venlafaxine Hcl Xr 75 Mg Cap.Er.24h PO 150 mg DAILY EDGARD Administration Zolpidem Tartrate 10 mg 10/26/21 20:21 10/27/21 21:16 Zolpidem Tartrate (*Crx) 5 Mg Tablet PO 10 mg HS PRN Administration Insomnia Radiology Results: ITS Impressions Abdomen/Pelvis CT 10/26/21 06:52 IMPRESSION: 1. Distended gallbladder with gallbladder wall thickening and fat stranding at the hilum of the liver suspicious for acute cholecystit
[2021-10-28] MEDS: VENLAFAXINE HCL XR 75 MG CAP.ER.24H 150 MG PO (10:10)
[2021-10-28] MEDS: buPROPion HCL XL (24 HR) 150 MG TABCR PO (10:10)
[2021-10-28] MEDS: PANTOPRAZOLE SODIUM IV 40 MG VIAL IV PUSH (10:10)
--- NOTE | 2021-10-28 13:30 | PM.DS ---
DS: Admitting Diagnosis Discharge Date Date of Service 10/28/21 1330 Admitting Diagnosis Elevated LFT/ acute cholecystitis DS: Discharge Diagnosis Discharge Diagnosis (1) Elevated LFTs: Onset Date: Unknown Code(s): R79.89 - Other specified abnormal findings of blood chemistry Status: Acute Assessment and Plan: Improving AST/ALT/ alk phos 67/143-112 CT of the abdomen pelvis shows possible acute cholecystitis and right upper quadrant ultrasound shows gallbladder sludge but no gallstones or gallbladder wall thickening GI consulted, recommendation appreciated No reports of excessive Tylenol alcohol, or aspirin use. 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 I called and spoke to radiology who reports no arterial/venous occlusions to the major arteries and veins Could consider CTA to assess for small vessel pathology but seems less likely Monitor liver enzymes May need HIDA or MRCP (2) Hyponatremia: Onset Date: ~10/26/21 Code(s): E87.1 - Hypo-osmolality and hyponatremia Status: Acute Assessment and Plan: Improving Na+ 133-->135 today Hx low sodium in the past down to 134 Likely due to acute illness on top of chronic hyponatremia Monitor daily labs (3) Hematuria: Code(s): R31.9 - Hematuria, unspecified Status: Acute Assessment and Plan: Noted on UA without signs of infection Recommend follow-up with primary care physician for repeat UA when healthy If she continues to have hematuria, she will need to follow up with a urologist (4) Hypothyroidism (acquired): Code(s): E03.9 - Hypothyroidism, unspecified Status: Acute Assessment and Plan: TSH elevated at 6.340 Will check free T4 Continue home dose for now, consider increasing (5) Anxiety: Code(s): F41.9 - Anxiety disorder, unspecified Status: Acute Assessment and Plan: Effexor and Wellbutrin resumed, LFT improving (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 patient stated that the pain was going to her right upper quadrant. She took Tums at home and had no relief. Patient was also having nausea without vomiting. GI and general surgery have both seen the patient. General surgery has been following the case and has came up with care plan for the patient and is going to have her labs rechecked if they have normalized they are going to put her on a medication to avoid surgery. GI has agreed with that plan. Liver enzymes have been notably elevated and have been trending downward today. Patient has been on a low-fat diet eating okay and has been able to tolerate a diet. CT of the abdomen and pelvis was done showed distended gallbladder with gallbladder wall thickening and fat stranding. Right upper quadrant ultrasound was also performed showed distended gallbladder with sludge no gallstones or gallbladder wall thickening but Gutierrez sign. Patient has also been treated with IV fluids and has advanced her diet slowly. Sodium was noted to be low however that is improved and is normalized as well. Patient is ready to go she denies chest pain, shortness of breath, nausea, vomiting, diarrhea, constipation, weakness, fever, sweats, chills. Status at Discharge Functional status at discharge: independent ambulation Overall status at discharge: patient is progressing back to basel
[2021-10-28 14:00] VITALS: BP 138/90; PULSE 67; RESP 18; TEMP 36.8; O2SAT 100
[2021-10-28 14:14] LABS: SARS-CoV-2 RNA PCR Negative
--- NOTE | 2021-10-28 15:49 | PC.NURSE ---
went over discharge instructions with patient and she verbalized understanding. awaiting her ride to get here to walk her down
== END 2021-10-28 16:23 | disposition home or self-care (01) ==
LOC: ANHED 08:06 → ANH2MED 08:14
PROVIDERS: Emergency Medicine; Nurse Practitioner Adult Health; Physician Assistant; Admitting Provider Internal Medicine; Emergency Provider Emergency Medicine; PCP Family Medicine; Visit Provider Internal Medicine
DX: K82.8 Other specified diseases of gallbladder (principal); E87.1 Hypo-osmolality and hyponatremia; R79.89 Other specified abnormal findings of blood chemistry; R31.9 Hematuria, unspecified; E03.9 Hypothyroidism, unspecified; F32.9 Major depressive disorder, single episode, unspecified; F41.9 Anxiety disorder, unspecified; I87.1 Compression of vein; Z20.822 Contact with and (suspected) exposure to COVID-19
CPT/HCPCS: 36415; 74177; 76705; 80048; 80053; 80074; 80076; 81001; 83036; 83690; 83735; 84439; 84443; 85025; 85610; 85730; 87426; 93005; 96361; 96365; 96366; 96374; 96375; 96376; 99285; A9270; C9113; C9803; G0378; J1885; J2270; J2405; J2543; J7030; Q9967; U0003; U0005

== ENCOUNTER 2021-10-30 07:01 | Outpatient (CLI) | payer OTHER, SELFPAY ==
[2021-10-30 07:37] LABS: Alanine Aminotransferase 115 U/L (4-35); Albumin Level 4.1 g/dL (3.5-5.1); Alkaline Phosphatase 145 U/L (38-126); Anion Gap 7 mmol/L (8-16); Aspartate Amino Transferase 42 U/L (14-36); Bilirubin,Total 0.6 mg/dL (0.2-1.3); Calcium 8.9 mg/dL (8.4-10.2); Carbon Dioxide 30 mmol/L (22-30); Chloride 98 mmol/L (98-107); Estimated Glomerular Filt Rate > 60; Glucose 101 mg/dL (65-110); Potassium 3.2 mmol/L (3.4-5.0); Sodium 135 mmol/L (137-145)
[2021-10-30 07:40] LABS: Blood Urea Nitrogen < 2 mg/dL (7-17)
== END 2021-10-30 07:02 | disposition home or self-care (01) ==
PROVIDERS: PCP Family Medicine; Visit Provider Surgery
DX: R79.89 Other specified abnormal findings of blood chemistry (principal)
CPT/HCPCS: 36415; 80053

== ENCOUNTER 2021-11-02 07:19 | Outpatient (CLI) | payer OTHER, SELFPAY ==
--- NOTE | ~2021-11-02 | NM_ITS ---
EXAMINATION: NM hepatobiliary wo pharm DATE: 11/02/2021 12:53 INDICATION: Epigastric pain COMPARISON: None. TECHNIQUE: 5.5 mCi Tc-99m mebrofenin (Choletec) was administered intravenously. Scintigraphic images of the abdomen were obtained for one hour. At the 1 hour time point, the patient drank 8 oz Ensure, and imaging was continued for 60 minutes. Gallbladder ejection fraction was calculated by the technol ogist. FINDINGS: There is normal clearance of radiotracer from the blood pool. There is homogeneous tracer u ptake by the liver. Activity progresses to the bowel and gallbladder. The gallbladder ejection fract ion (GBEF) is 0% with essentially plateau to slight continued increase in activity over the 60 minute s. Duration. Note that with this technique, normal GBEF >= 33%. IMPRESSION: 1. Gallbladder ejection fraction is 0% over the 60 minutes of observation which would be consistent with either gallbladder dysfunction or chronic cholecystitis in the appropriate clinical setting. Reviewed, dictated and finalized at location B. CARE PROVIDER IMPRESSION: 1. Gallbladder ejection fraction is 0% over the 60 minutes of observation whic h would be consistent with either gallbladder dysfunction or chronic cholecysti tis in the appropriate clinical setting.
== END 2021-11-02 07:20 | disposition home or self-care (01) ==
PROVIDERS: PCP Family Medicine; Visit Provider Surgery
DX: K81.0 Acute cholecystitis (principal); K82.8 Other specified diseases of gallbladder; R10.13 Epigastric pain
CPT/HCPCS: 78226; A9537

== ENCOUNTER 2021-11-16 00:07 | Day surgery (SDC) | payer OTHER, SELFPAY ==
[2021-11-02 13:59] VITALS: BMI 28.3
--- NOTE | 2021-11-15 14:04 | WPDANESEPPF ---
Anes - Initial Pre Proc Eval Procedure: Operation Date: 11/16/21 08:00 Proposed Procedures p Screening Colonoscopy - Bola Huffman MD Date/Time: 11/15/21 14:04 Surgeon: Bola Huffman MD Pre Op Diagnosis: neoplasm screening Patient Data Age: 51 Gender: F Height: 1.63 m Weight: 75 kg Allergies Allergy/AdvReac Type Severity Reaction Status Date / Time bacitracin Allergy Unknown Unknown Verified 11/16/21 07:03 neomycin Allergy Unknown Unknown Verified 11/16/21 07:03 polymyxin B Allergy Unknown Unknown Verified 11/16/21 07:03 meperidine AdvReac Intermediate rash & Verified 11/16/21 07:03 hallucinations Home Medications Medication Instructions Recorded Confirmed Type levothyroxine 50 mcg tablet 50 mcg PO DAILY #90 tablet 08/08/21 11/02/21 Rx semaglutide (weight loss) 2.4 2.4 mg SUBCUT WEEKLY #3 ml 10/22/21 11/02/21 Rx mg/0.75 mL subcutaneous pen injector zolpidem [Ambien] 10 mg PO ONCE PRN 10/26/21 11/02/21 History bupropion HCl 150 mg 24 hr tablet, 150 mg PO QAM #30 tablet 10/29/21 11/02/21 Rx extended release clonazepam 0.5 mg tablet 0.5 mg PO TID PRN #28 tablet 10/29/21 11/02/21 Rx venlafaxine 150 mg See Rx Instructions .ROUTE 10/29/21 11/02/21 Rx capsule,extended release 24 hr .COMPLEX #28 capsule ursodiol 300 mg capsule 300 mg PO BID #60 cap 10/30/21 11/02/21 Rx Patient hx anesthesia problems: none Family hx anesthesia problems: none Results Review: All pre-operative results and documents have been reviewed as part of the pre-operative evaluation. [facility] Past Medical History Medical History Adult BMI 32.0-32.9 kg/sq m BMI 29.0-29.9,adult BMI 31.0-31.9,adult BMI 32.0-32.9,adult DVT (deep venous thrombosis) Foot fracture, left Hypothyroidism (acquired) Major depressive disorder Weight loss counseling, encounter for Surgical History Surgical History H/O prior ablation treatment History of tonsillectomy Family History Family History Father Diabetes mellitus Mother No problems noted. Sibling Diabetes mellitus Other Cerebrovascular accident Depression Heart disease Hypertension Thyroid disease Social History Social History Social History: Patient does not smoke cigarettes currently but did smoke for 5 years in college. She does not smoke marijuana or do drugs. She drinks 2-3 glasses of wine about 3 days a week. 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 power of cobol mainframe developer is her Duarte Smoking status: Never smoker Second hand tobacco smoke exposure: No Alcohol intake: current Drinks per week: 12 Alcohol use details: socially Substance use: current Substance use type: does not use Living arrangements: with family Occupation/Education: occupation Additional occupation/education comments: pharmacist Gender identity (if verbalized by the patient): Female Spiritual care concerns: No Anes - Eval Final PreProcedure Day of Procedure 11/15/21 14:04 Patient weight: overweight Heart: regular rate and rhythm Lungs: clear to auscultation and normal air movement Airway: Mallampati scale class II Neurological: alert and oriented Last oral intake: >/= 8 hours ASA classification: II Emergent: no Anesthetic plan: proceed Anesthesia type and monitoring: general GIVS and standard monitoring Results Review: All pre-operative results and documents have been reviewed as part of the pre-operative evaluation. Informed Consent: The patient's anesthetic plan and its attendant risks and benefits were discussed with the patient/family/POA. Questions were solicited and answers provided to the satisfaction of the patient/family/POA.
[2021-11-16 07:04] VITALS: BP 129/82; PULSE 80; RESP 20; TEMP 36.4; O2SAT 100; BMI 28.3
[2021-11-16] MEDS: LACTATED RINGERS 1,000 ML 150 ML IV CONT (07:08)
--- NOTE | 2021-11-16 08:02 | PM.HPGS ---
History of Present Illness History of Present Illness Consent: Risks, benefits, and alternatives have been discussed and questions answered. Patient agrees to proceed with procedure. Chief complaint: neoplasm screening Narrative: Sol Reynolds is a 51 year old female here for first screening colonoscopy Review of Systems Constitutional: Constitutional: Denies headache(s) and Denies weakness Eyes: Eyes: Denies blurry vision ENT: Reports Normal hearing present, Denies headache(s) and Denies neck pain Cardiovascular: Cardiovascular: Denies chest pain and Denies dyspnea Respiratory: Respiratory: Denies dyspnea Gastrointestinal: Gastrointestinal: Reports no additional gastrointestinal complaints Genitourinary: Genitourinary: Denies dysuria Musculoskeletal: Musculoskeletal: Denies neck pain Integumentary/Breasts: Skin/Breast: Denies dry skin Neurologic: Reports Normal hearing present, Denies headache(s) and Denies weakness Psychiatric: Psychiatric: Denies anxiety Endocrine: Endocrine: Denies change in body appearance Hematologic/Lymphatic: Hematologic/Lymphatic: Denies easy bleeding Allergic/Immunologic: Allergic/Immunologic: Denies urticaria [facility] Past Medical History Medical History (Updated 11/16/21 @ 08:02 by Bola Huffman MD) Adult BMI 32.0-32.9 kg/sq m BMI 29.0-29.9,adult BMI 31.0-31.9,adult BMI 32.0-32.9,adult Colon cancer screening DVT (deep venous thrombosis) Foot fracture, left Hypothyroidism (acquired) Major depressive disorder Weight loss counseling, encounter for Surgical History Surgical History H/O prior ablation treatment History of tonsillectomy Family History Family History Father Diabetes mellitus Mother No problems noted. Sibling Diabetes mellitus Other Cerebrovascular accident Depression Heart disease Hypertension Thyroid disease Social History Social History Social History: Patient does not smoke cigarettes currently but did smoke for 5 years in college. She does not smoke marijuana or do drugs. She drinks 2-3 glasses of wine about 3 days a week. 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 power of research attorney is her , Duarte Smoking status: Never smoker Second hand tobacco smoke exposure: No Alcohol intake: current Drinks per week: 12 Alcohol use details: socially Substance use: current Substance use type: does not use Living arrangements: with family Occupation/Education: occupation Additional occupation/education comments: pharmacist Gender identity (if verbalized by the patient): Female Spiritual care concerns: No Meds Home Medications and Allergies Home Medications Medication Instructions Recorded Confirmed Type levothyroxine 50 mcg tablet 50 mcg PO DAILY #90 tablet 08/08/21 11/02/21 Rx semaglutide (weight loss) 2.4 2.4 mg SUBCUT WEEKLY #3 ml 10/22/21 11/02/21 Rx mg/0.75 mL subcutaneous pen injector zolpidem [Ambien] 10 mg PO ONCE PRN 10/26/21 11/02/21 History bupropion HCl 150 mg 24 hr tablet, 150 mg PO QAM #30 tablet 10/29/21 11/02/21 Rx extended release clonazepam 0.5 mg tablet 0.5 mg PO TID PRN #28 tablet 10/29/21 11/02/21 Rx venlafaxine 150 mg See Rx Instructions .ROUTE 10/29/21 11/02/21 Rx capsule,extended release 24 hr .COMPLEX #28 capsule ursodiol 300 mg capsule 300 mg PO BID #60 cap 10/30/21 11/02/21 Rx Allergies Allergy/AdvReac Type Severity Reaction Status Date / Time bacitracin Allergy Unknown Unknown Verified 11/16/21 07:03 neomycin Allergy Unknown Unknown Verified 11/16/21 07:03 polymyxin B Allergy Unknown Unknown Verified 11/16/21 07:03 meperidine AdvReac Intermediate rash & Verified 11/16/21 07:03 hallucinations Vital Signs Vital Signs - 24 hr
[2021-11-16 08:27] VITALS: BP 90/53; PULSE 63; RESP 20; O2SAT 100
[2021-11-16 08:37] VITALS: BP 101/64; PULSE 55; RESP 16; O2SAT 100
--- NOTE | 2021-11-16 08:42 | SUR.OPER ---
RN updated family
[2021-11-16 08:47] VITALS: BP 115/75; PULSE 56; RESP 16; O2SAT 100
== END 2021-11-16 08:52 | disposition home or self-care (01) ==
PROVIDERS: PCP Family Medicine; Visit Provider Internal Medicine Gastroenterology
PROC: 0DJD8ZZ Inspection of Lower Intestinal Tract, Via Natural or Artificial Opening Endoscopic (ICD-10-PCS; CPT 45378; principal; 2021-11-16 08:00)
DX: Z12.11 Encounter for screening for malignant neoplasm of colon (principal); K57.30 Diverticulosis of large intestine without perforation or abscess without bleeding; K64.8 Other hemorrhoids; Z86.718 Personal history of other venous thrombosis and embolism; E03.9 Hypothyroidism, unspecified; F32.9 Major depressive disorder, single episode, unspecified
CPT/HCPCS: 45378; J2704; J7120

== ENCOUNTER 2021-11-21 07:49 | Outpatient (CLI) | payer OTHER, SELFPAY ==
[2021-11-21 08:33] LABS: Alanine Aminotransferase 23 U/L (4-35); Albumin Level 4.1 g/dL (3.5-5.1); Alkaline Phosphatase 73 U/L (38-126); Amylase 92 U/L (30-110); Anion Gap 6 mmol/L (8-16); Aspartate Amino Transferase 26 U/L (14-36); Basophils Percent Auto 0.8 % (0.2-1.2); Bilirubin,Total 0.4 mg/dL (0.2-1.3); Blood Urea Nitrogen 15 mg/dL (7-17); Calcium 9.1 mg/dL (8.4-10.2); Carbon Dioxide 29 mmol/L (22-30); Chloride 104 mmol/L (98-107); Eosinophils Absolute Auto 0.5 K/mm3 (0-0.3); Eosinophils Percent Auto 10.5 % (0-4.4); Estimated Glomerular Filt Rate 58; Glucose 98 mg/dL (65-110); Hematocrit 41.7 % (37.0-47.0); Immature Granulocyte Absolute 0.01 K/mm3 (0.00-0.031); Immature Granulocyte Percent A 0.2 % (0-0.5); Lipase 115 U/L (23-300); Lymphocytes Absolute Auto 1.83 K/mm3 (0.9-3.2); Lymphocytes Percent Auto 37.1 % (18.3-44.2); Mean Corpuscular HGB Conc 33.6 g/dl (32-36); Mean Corpuscular Hemoglobin 32.6 pg (26-34); Mean Corpuscular Volume 97.2 fl (80-100); Mean Platelet Volume 10.2 fl (7.4-10.4); Monocytes Absolute Auto 0.4 K/mm3 (0.1-0.6); Monocytes Percent Auto 7.9 % (2.6-8.5); Neutrophils Absolute Auto 2.1 K/mm3 (1.3-6.7); Neutrophils Percent Auto 43.5 % (45.5-73.1); Platelet Count Result 254 k/mm3 (150-375); Potassium 4.6 mmol/L (3.4-5.0); Red Blood Count 4.29 M/mm3 (4.2-5.4); Red Cell Distribution Width 12.7 % (11.5-14.5); Sodium 139 mmol/L (137-145); White Blood Count 4.9 K/mm3 (4.5-10.0)
== END 2021-11-21 07:50 | disposition home or self-care (01) ==
LOC: ANHSURGERY 07:52
PROVIDERS: PCP Family Medicine; Visit Provider Surgery
DX: Z01.812 Encounter for preprocedural laboratory examination (principal); K82.8 Other specified diseases of gallbladder; R10.13 Epigastric pain; K81.0 Acute cholecystitis
CPT/HCPCS: 36415; 80053; 82150; 83690; 85025

== ENCOUNTER 2021-11-26 02:02 | Day surgery (SDC) | payer OTHER, SELFPAY ==
[2021-11-20 15:34] VITALS: BMI 27.0
--- NOTE | 2021-11-20 15:47 | PC.NURSE ---
Report to the Outpatient Waiting Room, entrance under the green pavilion located off [facility], at time 9:00 on date 11/26/21. OR Time: 11:00. - You will be asked a series of questions to screen for COVID 19 for your protection. - A mask is required within the hospital. - No visitors are allowed at this time. Preoperative COVID Testing Requirements: No COVID Test needed if: (proof is required; if not received patient will have Rapid Test prior to entry) - Patient has received COVID Vaccine at least 14 days prior to procedure date or - Patient has positive COVID test result within last 90 days of surgery date. COVID Test needed if above criteria is not met Patients may have clear liquids (water, carbonated beverages, clear teas, apple juice) until 3 hours prior to surgery (8:00) with a maximum of 20 ounces. - No food from midnight until time of surgery Take the following medications with a SIP of water the morning of surgery: BUPROPION, CLONAZEPAM, LEVOTHYROXINE, VENLAFAXINE Medications to discontinue per physician: N/A Date to take last dose: N/A Please no make-up, nail hebrew, hairspray, perfume, deodorant, or body powder the day of surgery. No jewelry (including any body piercings) or valuables the day of surgery, leave them at home. Please take a shower or bath the night before, or the morning of, surgery with an antibacterial soap. Wear comfortable, loose fitting clothing. HIBICLENS SHOWER - Jewelry must be removed prior to entering the operating room. Rings and piercings that are not removed may be cut off. - The hospital will not accept responsibility for valuables. - Please leave all valuables, including medications, at home the day of surgery. If you are going home after surgery, a licensed carry all driver must drive you home. - NO public transportation without another adult. - We recommend that an adult stay with you for 24 hours following discharge. - We also recommend that you do not drive, make important decision, drink alcoholic beverages, or take any drugs that were not prescribed by your health care provider for at least 24 hours after your discharge time. Follow any additional instructions given to you from your surgeon. Telephone instructions given to NORMAN CLARK and asked if any additional questions and then verbalized understanding. Patient advised to call surgeon office or pre surgery nurse liaison [phone] if any additional questions.
--- NOTE | 2021-11-24 10:31 | SUR.PREOP ---
patient contacted and request to arrive at 615 on 11/26/21 due to prior case cancelling, patient states will be plan to arrive at 615.
[2021-11-26] VITALS (10 sets, daily range): BP systolic 107–151; BP diastolic 67–85; PULSE 70–88; RESP 14–18; TEMP 36.3–36.6; O2SAT 93–100
[2021-11-26] MEDS: ACETAMINOPHEN 500 MG TABLET 1000 MG PO (06:32)
--- NOTE | 2021-11-26 07:14 | WPDANESEPPF ---
Anes - Initial Pre Proc Eval Procedure: Operation Date: 11/26/21 08:15 Proposed Procedures p Laparoscopic Cholecystectomy Possible Intraoperative Cholangiogram, Possible Open - Truong Hilton MD Date/Time: 11/26/21 07:14 Surgeon: Truong Hilton MD Pre Op Diagnosis: biliary dyskinesia Patient Data Age: 51 Gender: F Height: 1.64 m Weight: 72.57 kg Allergies Allergy/AdvReac Type Severity Reaction Status Date / Time bacitracin Allergy Unknown Unknown Verified 11/26/21 06:24 neomycin Allergy Unknown Unknown Verified 11/26/21 06:24 polymyxin B Allergy Unknown Unknown Verified 11/26/21 06:24 meperidine AdvReac Intermediate rash & Verified 11/26/21 06:24 hallucinations Home Medications Medication Instructions Recorded Confirmed Type semaglutide (weight loss) 2.4 2.4 mg SUBCUT WEEKLY #3 ml 10/22/21 11/26/21 Rx mg/0.75 mL subcutaneous pen injector bupropion HCl 150 mg 24 hr tablet, 150 mg PO QAM #30 tablet 10/29/21 11/26/21 Rx extended release venlafaxine 150 mg See Rx Instructions .ROUTE 10/29/21 11/26/21 Rx capsule,extended release 24 hr .COMPLEX #28 capsule clonazepam 0.5 mg tablet 0.5 mg PO TID PRN #28 tablet 11/23/21 11/26/21 Rx levothyroxine 50 mcg tablet 50 mcg PO DAILY #90 tablet 11/23/21 11/26/21 Rx zolpidem 10 mg tablet 10 mg PO ONCE PRN #30 tablet 11/23/21 11/26/21 Rx Patient hx anesthesia problems: other (motion sickness) Family hx anesthesia problems: none Results Review: All pre-operative results and documents have been reviewed as part of the pre-operative evaluation. [facility] Past Medical History Medical History Adult BMI 32.0-32.9 kg/sq m BMI 29.0-29.9,adult BMI 31.0-31.9,adult BMI 32.0-32.9,adult Colon cancer screening DVT (deep venous thrombosis) Foot fracture, left Hypothyroidism (acquired) Major depressive disorder Weight loss counseling, encounter for Surgical History Surgical History H/O prior ablation treatment History of tonsillectomy Family History Family History Father Diabetes mellitus Mother No problems noted. Sibling Diabetes mellitus Other Cerebrovascular accident Depression Heart disease Hypertension Thyroid disease Social History Social History Social History: Patient does not smoke cigarettes currently but did smoke for 5 years in college. She does not smoke marijuana or do drugs. She drinks 2-3 glasses of wine about 3 days a week. 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 is her , Duarte Smoking status: Never smoker Second hand tobacco smoke exposure: No Alcohol intake: current Drinks per week: 12 Alcohol use details: socially Substance use: never Substance use type: does not use Living arrangements: with family Additional occupation/education comments: pharmacist Gender identity (if verbalized by the patient): Female Spiritual care concerns: No Anes - Eval Final PreProcedure Day of Procedure 11/26/21 07:14 Patient weight: overweight Heart: regular rate and rhythm Lungs: clear to auscultation Airway: Mallampati scale class II Neurological: alert and oriented Last oral intake: >/= 8 hours ASA classification: III Emergent: no Anesthetic plan: proceed Anesthesia type and monitoring: general ETT and standard monitoring Results Review: All pre-operative results and documents have been reviewed as part of the pre-operative evaluation. Informed Consent: The patient's anesthetic plan and its attendant risks and benefits were discussed with the patient/family/POA. Questions were solicited and answers provided to the satisfaction of the patient/family/POA.
[2021-11-26] MEDS: KETOROLAC 15 MG/ML VIAL (*BKC) IV PUSH (07:33)
[2021-11-26] MEDS: LACTATED RINGERS 1,000 ML 30 ML IV CONT ×2 (07:33→10:13)
[2021-11-26] MEDS: SCOPOLAMINE 1.5 MG PATCH TRANSDERM (07:47)
--- NOTE | 2021-11-26 07:56 | WPDHPUPDATE1 ---
History and Physical Update Update Date/Time: 11/26/21 07:56 History and Physical has been reviewed, including an updated exam of the patient. There are changes in the patient's condition.The pt has had a colonoscopy in the last month which showed only minor diverticulosis and small internal hemorrhoids. Risks, benefits, and alternatives of a laparoscopic cholecystectomy with possible intraoperative cholangiogram and possible open cholecystectomy have been discussed and questions answered. Patient agrees to proceed with procedure.
[2021-11-26] MEDS: ceFAZolin 2 GM/D5W 50 ML 2 GM/50 ML BAG IVPB (08:26)
[2021-11-26] MEDS: BUPIVACAINE/EPINEPHRINE 0.5% 30 ML VIAL INFILTRATE (08:29)
--- NOTE | 2021-11-26 10:31 | W.PM.PROC2 ---
Procedure Note - Detailed Date of Procedure 11/26/21 Pre-op Diagnosis 1.Gallbladder sludge with a nonfunctioning gallbladder. 2.biliary dyskinesia Post-op Diagnosis same Procedure Performed Laproscopic Cholecystectomy Surgeon Truong Hilton MD Director Economic Dang DAILY.OR machinist first class Anesthesia general Indications This patient was initially admitted to the hospital about a month ago. She appeared to have cholecystitis or bad GERD. She had elevated liver function tests but CT scan showed sludge in the gallbladder along with the ultrasound. She gradually improved and went home after together we decided not to do surgery immediately. She had follow-up in the outpatient clinic after a HIDA scan showed a nonfunctioning gallbladder. Had her gallbladder functioned, since she had sludge only, we were considering treating her with Actigall. She has a history of taking a medication to lose weight and this is probably how this sludge formed. She presents at this time for cholecystectomy in view of a nonfunctioning gallbladder with continuing intermittent abdominal pain. LFTs have normalized over the interim. Findings Gallbladder was bluish green normal and normal in appearance, however the back wall was somewhat thickened and very densely adherent to the liver bed on the liver side. Upon removal from the abdomen it would not come up through the 12 mm opening therefore it was opened at the neck and a lot of green bile was able to be removed along with some sludge like material. The gallbladder then easily came up through the opening near the umbilicus. No other intra-abdominal abnormalities noted. Description of Procedure Patient was seen preoperatively in the holding area and risks, benefits and alternatives confirmed. Patient was taken to the operating room and general anesthesia was induced. A time out was then preformed with the surgery team confirming patient and site of surgery. The abdomen was prepped and draped in the usual sterile fashion. Incision was made just below the umbilicus with an 11 blade knife. I placed 2 stay sutures of O- Vicryl on either side of the mid-line fascia beneath the umbilicus and was then able to slide in the Zhao cannula through the fascial defect into the peritoneum. First under low flow and then under high flow the abdomen was insufflated with carbon dioxide never exceeding a pressure of 14. Three 5 mm trocars were then introduced under direct vision. The following trocars were introduced under direct vision: a 5 mm in the epigastrium and two 5 mm trocars along the right costal margin laterally in the subcostal area. There were not any adhesions to the underside of the gallbladder. The gallbladder was then retracted with graspers. I then carefully used the L-shaped cautery and the [place] dissector to dissect out the triangle of Calot. I then was able to dissect out both the cystic duct and cystic artery and identify a window of safety. The gall bladder was grasped and the cystic duct and artery were dissected free and clipped with an 5 mm endo-clip correction officer supervisor. The cystic duct and artery were clipped with use of 2 clips on the patient's side 1 on the gallbladder side utilizing a 5 mm endoclip-correction officer supervisor. The cystic duct was then transected. The cystic artery was also transected at this point. The gall bladder was removed using electrocautery and then removed from the abdomen using a large 10 mm grasper via the umbilical incision. The gallbladder was distended enough with fluid or slough that I could not pull it up through the opening at the umbilicus. Therefore with portion of the neck outside the abdomen we carefully used the hemostat and opened a opening in the neck of the gallbladder a 16 gauge this endotracheal suction catheter that was sterile was passed on the field connected to suction and then we suctioned all of the bile and some of the sludge out of the gallbladder and that easily came up through the opening was
[2021-11-26] MEDS: fentaNYL CITRATE INJ (*CRX) 100 MCG/2 ML VIAL 25 MCG IV PUSH ×3 (10:46→11:15)
[2021-11-26] MEDS: ONDANSETRON INJ 4 MG/2 ML VIAL IV PUSH (11:50)
== END 2021-11-26 12:40 | disposition home or self-care (01) ==
PROVIDERS: PCP Family Medicine; Visit Provider Surgery
PROC: 0FT44ZZ Resection of Gallbladder, Percutaneous Endoscopic Approach (ICD-10-PCS; CPT 47562; principal; 2021-11-26 08:15)
DX: K80.10 Calculus of gallbladder with chronic cholecystitis without obstruction (principal); E03.9 Hypothyroidism, unspecified; F32.9 Major depressive disorder, single episode, unspecified; Z79.899 Other long term (current) drug therapy
CPT/HCPCS: 47562; 36415; 80053; 82150; 83690; 85025; 88304; A9270; J0330; J0690; J1100; J1885; J2250; J2405; J2704; J2710; J3010; J7030; J7120

== ENCOUNTER 2022-02-21 17:29 | Outpatient (CLI) | payer OTHER, SELFPAY ==
--- NOTE | ~2022-02-21 | MM_ITS ---
EXAMINATION: MM screening [facility] BI w devora HISTORY: Screening TECHNIQUE: Craniocaudal and mediolateral oblique 3-D tomosynthesis images were obtained and synthetic 2-D images were generated. CAD analysis was submitted and interpreted. COMPARISON: Comparison to multiple prior studies sequentially, with oldest reviewed study dated 04/2013. BREAST PARENCHYMAL COMPOSITION: There are scattered areas of fibroglandular density. FINDINGS: There is no evidence of suspicious mass, calcification, or architectural distortion to sugg est malignancy in either breast. There has been no suspicious interval change. IMPRESSION: 1. No mammographic evidence of malignancy. 2. Recommend routine screening mammography in one year. BI-RADS Category 1: Negative Reviewed, dictated and finalized at location A.
== END 2022-02-21 17:30 | disposition home or self-care (01) ==
LOC: ANHIMG 17:30
PROVIDERS: PCP Family Medicine; Visit Provider Nurse Practitioner
DX: Z12.31 Encounter for screening mammogram for malignant neoplasm of breast (principal)
CPT/HCPCS: 77063; 77067

== ENCOUNTER 2022-04-14 11:13 | Emergency (ER) | payer OTHER, SELFPAY ==
[2022-04-14 11:20] VITALS: BP 125/80; PULSE 71; RESP 16; TEMP 36.7; O2SAT 100
--- NOTE | 2022-04-14 11:30 | ED.WOUNDLAC ---
HPI - Wound/Laceration General Chief Complaint: Wound/Laceration Stated Complaint: FINGER LACERATION Time Seen by Provider: 04/14/22 11:22 Source: patient Mode of arrival: ambulatory Limitations: no limitations History of Present Illness HPI narrative: Ms. Reynolds is a 51-year-old female patient presenting to the clinic today with complaints of a laceration to her left index finger. She reports that she was using a hedge tremor when she cut her finger. Tetanus shot is up-to-date as she received this in 2017. Bleeding is controlled. She has full range of motion sensation and circulation to the finger. Related Data Allergies Allergy/AdvReac Type Severity Reaction Status Date / Time bacitracin Allergy Unknown Unknown Verified 04/14/22 11:20 neomycin Allergy Unknown Unknown Verified 04/14/22 11:20 polymyxin B Allergy Unknown Unknown Verified 04/14/22 11:20 meperidine AdvReac Intermediate rash & Verified 04/14/22 11:20 hallucinations Review of Systems Review of Systems: Pertinent positives per HPI. Patient denies any fever, chills, rash, headache, visual changes, dizziness, cough, runny nose, sore throat, shortness of breath, chest pain, palpitations, nausea, vomiting, diarrhea, constipation, abdominal pain. 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 Sibling Diabetes mellitus Other Cerebrovascular accident Depression Heart disease Hypertension Thyroid disease Social History Social History Social History: Patient does not smoke cigarettes currently but did smoke for 5 years in college. She does not smoke marijuana or do drugs. She drinks 2-3 glasses of wine about 3 days a week. 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 There is no relevant family history pertinent to the patient complaint. Exam Narrative: General: Well-developed, well nourished, in no apparent distress Head: Normocephalic, atraumatic. Cardio: Regular rate and rhythm, s1 and s2 normal, no murmur appreciated. Resp: Clear to auscultation bilaterally, no rhonchi, rales, wheezing or rubs. Integumentary: [place], warm, and dry, 2 cm flap laceration to the medial index finger of the left hand. Bleeding controlled Course Course Emergency Course: Portions of this record may have been created with voice recognition software. Level of Care: Express Care Visit Vital Signs Vital signs: Vital Signs Temperature 36.7 C 04/14/22 11:20 Pulse Rate 71 04/14/22 11:20 Respiratory Rate 16 04/14/22 11:20 Blood Pressure 125/80 04/14/22 11:20 Pulse Oximetry 100 04/14/22 11:20 Oxyge
== END 2022-04-14 12:10 | disposition home or self-care (01) ==
PROVIDERS: Emergency Provider Nurse Practitioner Family; PCP Family Medicine
DX: S61.211A Laceration without foreign body of left index finger without damage to nail, initial encounter (principal); W29.3XXA Contact with powered garden and outdoor hand tools and machinery, initial encounter; Z86.718 Personal history of other venous thrombosis and embolism; E03.9 Hypothyroidism, unspecified; F32.9 Major depressive disorder, single episode, unspecified
CPT/HCPCS: 12001; 99212; G0463

== ENCOUNTER → 2023-04-09 10:10 | Outpatient (CLI) | payer OTHER, SELFPAY ==
--- NOTE | ~2023-04-09 | US_ITS ---
EXAMINATION: US transvaginal DATE: 04/10/2023 14:09 INDICATION: Postmenopausal bleeding bleeding with intercourse. Comparison:No prior studies for comparison. TECHNIQUE: Multiple endovaginal sonographic images of the pelvis performed. FINDINGS: The uterus measures 5.1 x 2.4 x 3.6 cm. There is a uterine fibroid measuring 1.3 x 1.1 x 1. 3 cm The endometrial complex measures 3 mm. The ovaries are not visualized. There is no free fluid in the pelvis. There are no abnormal masses seen on either side. IMPRESSION: 1. Uterine fibroid measuring 1.3 cm. Reviewed, dictated and finalized at location L.
== END ==
PROVIDERS: PCP Nurse Practitioner; Visit Provider Nurse Practitioner
DX: N95.0 Postmenopausal bleeding (principal); D25.9 Leiomyoma of uterus, unspecified
CPT/HCPCS: 76830

== ENCOUNTER → 2023-07-11 12:46 | Outpatient (CLI) | payer OTHER, SELFPAY ==
--- NOTE | ~2023-07-11 | DEXA_ITS ---
Bone Density Report Name: NORMAN CLARK Age: 52 Sex: Female Ethnicity: White Date of : 1970 Indication: postmenopausal; screening for osteoporosis; parental hip fracture; height loss; Referring Provider: RONY, MANUEL Study: Bone densitometry was performed. Exam Date: July 11, 2023 Accession number: [id number] Bone Density: Region BMD T-score Z-score Classification AP Spine (L1-L4) 0.984 -0.6 0.3 Normal Femoral Neck (Left) 0.859 0.1 1.0 Normal Total Hip (Left) 0.959 0.1 0.7 Normal Femoral Neck (Right) 0.800 -0.4 0.5 Normal Total Hip (Right) 0.929 -0.1 0.5 Normal Total Hip Mean 0.944 0.0 0.6 Normal World Health Organization criteria for BMD impression classify patients as: Normal (T-score at or above -1.0), Osteopenia (T-score between -1.0 and -2.5), or Osteoporosis (T-score at or below -2.5). 10-year Fracture Risk: FRAX not reported because: All T-scores for Spine Total, Hip Total, Femoral Neck at or above -1.0 Clinical Information Provided by Patient: Parent has had a hip fracture Has used the following medications: Vitamin D, Calcium Patient maximum height was 65 Menopause Age: 42 Onset of menses at age 13 Number of children 2 Impression: The patient has normal bone mass. The patient has risk factors, including: parental hip fracture. Discussion: BONE DENSITY IS ABOVE THE MINIMUM DESIRABLE LEVEL AT ALL SKELETAL SITES TESTED. This patient?s bone mineral density is above the minimum desirable level (T-score -1.0 or better) at all sites measured. The patient should follow a healthful lifestyle (good nutrition with adequate calcium and vitamin D, and appropriate weight-bearing exercise). Follow-Up: Consider repeating this study in 5 years or sooner if there is some new clinical indication. Reported by: BOBBI on 07/11/2023 1:16:00 PM. Reviewed, dictated and finalized at location [facility]ON[facility]
--- NOTE | ~2023-07-11 | MM_ITS ---
EXAMINATION: MM screening saima BI w devora HISTORY: Screening mammogram TECHNIQUE: Craniocaudal and mediolateral oblique 3-D tomosynthesis images were obtained and synthetic 2-D images were generated. CAD analysis was submitted and interpreted. COMPARISON: February 21, 2022 bilateral screening mammogram March 21, 2020 diagnostic bilateral mammogram and limited left breast ultrasound, reported negative 07/21/2018 diagnostic left mammogram and limited left breast ultrasound, reported negative bilateral screening mammogram BREAST PARENCHYMAL COMPOSITION: There are scattered areas of fibroglandular density. FINDINGS: There is no evidence of suspicious mass, calcification, or architectural distortion to sugg est malignancy in either breast. There has been no suspicious interval change. IMPRESSION: 1. No mammographic evidence of malignancy. 2. Recommend routine screening mammography in one year. BI-RADS Category 1: Negative Reviewed, dictated and finalized at location A.
== END ==
PROVIDERS: PCP Nurse Practitioner; Visit Provider Nurse Practitioner
DX: Z12.31 Encounter for screening mammogram for malignant neoplasm of breast (principal); Z78.0 Asymptomatic menopausal state
CPT/HCPCS: 77063; 77067; 77080

== ENCOUNTER → 2023-08-25 13:32 | Outpatient (CLI) | payer OTHER, SELFPAY ==
--- NOTE | ~2023-08-25 | XR_ITS ---
XR finger 3rd RT min 2V DATE: 08/25/2023 14:13 INDICATION: Right third digit pain TECHNIQUE: 4 views COMPARISON: 10/03/2021 right hand FINDINGS: No fracture or dislocation, periosteal reaction or bone destruction, radiopaque soft tissue foreign body, subcutaneous emphysema or soft tissue swelling. IMPRESSION: Negative Reviewed, dictated and finalized at location B. IMPRESSION: Negative
== END ==
PROVIDERS: PCP Family Medicine; Visit Provider Specialist
DX: M79.644 Pain in right finger(s) (principal)
CPT/HCPCS: 73140

== ENCOUNTER 2025-08-01 07:26 | Outpatient (CLI) | payer OTHER, SELFPAY ==
--- NOTE | ~2025-08-01 | MM_ITS ---
EXAMINATION: MM screening saima BI w devora HISTORY: Screening TECHNIQUE: Craniocaudal and mediolateral oblique 3-D tomosynthesis images were obtained and synthetic 2-D images were generated. CAD analysis was submitted and interpreted. COMPARISON: Comparison to multiple prior studies sequentially, with oldest reviewed study dated , 04/09/2016 BREAST PARENCHYMAL COMPOSITION: The breasts are almost entirely fatty. FINDINGS: There is no evidence of suspicious mass, calcification, or architectural distortion to suggest malignancy in either breast. IMPRESSION: 1. No mammographic evidence of malignancy. 2. Recommend routine screening mammography in one year. BI-RADS Category 1: Negative Reviewed, dictated and finalized at location B.
== END 2025-08-01 07:27 | disposition home or self-care (01) ==
LOC: MICIMG 07:27
PROVIDERS: PCP Family Medicine; Visit Provider Obstetrics & Gynecology Gynecology
DX: Z12.31 Encounter for screening mammogram for malignant neoplasm of breast (principal)
CPT/HCPCS: 77063; 77067